=== PATIENT | female | born 1955 | race Two or more races ===

== ENCOUNTER 2018-07-02 11:08 | Outpatient (CLI) | payer OTHER | END 2018-07-02 11:12 | disposition home or self-care (01) | LOC: MAMO-SONO 11:08 | DX: Z12.31 Encounter for screening mammogram for malignant neoplasm of breast (principal); Z87.898 Personal history of other specified conditions; N61.0 Mastitis without abscess ==

== ENCOUNTER 2019-07-03 11:06 | Outpatient (CLI) | payer OTHER | END 2019-07-03 11:08 | disposition home or self-care (01) | LOC: MAMO-SONO 11:06 | DX: Z12.31 Encounter for screening mammogram for malignant neoplasm of breast (principal); N60.11 Diffuse cystic mastopathy of right breast; N60.12 Diffuse cystic mastopathy of left breast ==

== ENCOUNTER 2020-07-06 10:12 | Outpatient (CLI) | payer OTHER | END 2020-07-06 10:26 | disposition home or self-care (01) | LOC: MAMO-SONO 10:12 | PROVIDERS: ATTEND Specialist | DX: N60.01 Solitary cyst of right breast (principal); Z12.31 Encounter for screening mammogram for malignant neoplasm of breast; N60.11 Diffuse cystic mastopathy of right breast; N60.12 Diffuse cystic mastopathy of left breast ==

== ENCOUNTER 2020-11-27 14:20 | Outpatient (CLI) | payer OTHER | END 2020-11-27 14:21 | disposition home or self-care (01) | LOC: SONOGRAMA 14:20 | PROVIDERS: ATTEND Specialist | DX: N60.02 Solitary cyst of left breast (principal); R92.8 Other abnormal and inconclusive findings on diagnostic imaging of breast ==

== ENCOUNTER → 2020-12-15 13:51 | Outpatient (CLI) | payer OTHER | END | disposition home or self-care (01) | LOC: RAD 13:51 | PROVIDERS: ATTEND Podiatrist Foot Surgery | DX: M20.42 Other hammer toe(s) (acquired), left foot (principal); M20.41 Other hammer toe(s) (acquired), right foot ==

== ENCOUNTER 2021-01-01 08:21 | Outpatient (CLI) | payer OTHER | END 2021-01-01 08:32 | disposition home or self-care (01) | LOC: MRI 08:21 | PROVIDERS: ATTEND Specialist | DX: D25.2 Subserosal leiomyoma of uterus (principal); R19.00 Intra-abdominal and pelvic swelling, mass and lump, unspecified site | CPT/HCPCS: 72197; A9575 ==

== ENCOUNTER 2021-05-24 13:08 | Outpatient (CLI) | payer OTHER | END 2021-05-24 13:17 | disposition home or self-care (01) | LOC: RAD 13:08 | PROVIDERS: ATTEND Orthopaedic Surgery Adult Reconstructive Orthopaedic Surgery | DX: M16.0 Bilateral primary osteoarthritis of hip (principal); M17.0 Bilateral primary osteoarthritis of knee ==

== ENCOUNTER 2021-05-31 17:07 | Outpatient (CLI) | payer OTHER | END 2021-05-31 17:18 | disposition home or self-care (01) | LOC: RAD 17:07 → LAB 17:07 → RAD 17:18 | PROVIDERS: ATTEND Orthopaedic Surgery Adult Reconstructive Orthopaedic Surgery | DX: I11.9 Hypertensive heart disease without heart failure (principal) ==

== ENCOUNTER → 2022-06-21 | Outpatient (CLI) | payer OTHER | END | disposition home or self-care (01) | LOC: MAMO-SONO 11:15 | PROVIDERS: ATTEND Specialist | DX: N60.11 Diffuse cystic mastopathy of right breast (principal); N60.12 Diffuse cystic mastopathy of left breast ==

== ENCOUNTER 2023-08-31 14:17 | Outpatient (CLI) | payer OTHER | END 2023-08-31 14:23 | disposition home or self-care (01) | LOC: MAMO-SONO 14:17 | PROVIDERS: ATTEND Specialist | DX: N60.11 Diffuse cystic mastopathy of right breast (principal); N60.12 Diffuse cystic mastopathy of left breast; Z12.31 Encounter for screening mammogram for malignant neoplasm of breast ==

== ENCOUNTER → 2024-09-23 | Outpatient (CLI) | payer OTHER | END | disposition home or self-care (01) | LOC: MAMO-SONO 10:22 | PROVIDERS: ATTEND Specialist | DX: N60.11 Diffuse cystic mastopathy of right breast (principal); N60.12 Diffuse cystic mastopathy of left breast; Z12.31 Encounter for screening mammogram for malignant neoplasm of breast ==